=== PATIENT | female | born 1940 | race Caucasian/White ===

== ENCOUNTER 2017-09-28 14:17 | Outpatient (CLI) | payer MEDICARE, OTHER | END 2017-09-28 23:59 | disposition home or self-care (01) | LOC: RT 14:17 | PROVIDERS: ATTEND Internal Medicine Cardiovascular Disease | DX: I25.10 Atherosclerotic heart disease of native coronary artery without angina pectoris (principal) | CPT/HCPCS: 93005 ==

== ENCOUNTER 2017-10-03 08:54 | Outpatient (CLI) | payer MEDICARE, OTHER ==
--- NOTE | 2017-10-05 15:36 | DEXA Report ---
DEXA: 10/03/2017 CLINICAL INDICATION: Postmenopausal. TECHNIQUE: Dual energy x-ray absorptiometry (DXA) was performed on a Patterns system. Regions measured are the AP spine, femoral neck, and, if needed, forearm. COMPARISON: None. In accordance with the International Society for Clinical Densitometry (ISCD) guidelines, data from previous exams may be reanalyzed using current recommendations and techniques. This is done to allow a more accurate basis for comparison with the current study. FINDINGS The data for the lumbar spine is as follows: REGION BMD (g/cm/cm) T-SCORE Z-SCORE L1 0.903 -1.9 -0.3 L2 0.872 -2.7 -1.2 L3 0.794 -3.4 -1.8 L4 0.757 -3.7 -2.1 L1-L4 0.819 -3.0 -1.4 NOTE: All evaluable vertebrae are used for classification. The data for the hip is as follows: REGION BMD (g/cm/cm) T-SCORE Z-SCORE Neck 0.764 -2.0 -0.1 TOTAL 0.917 -0.7 1.0 NOTE: The femoral neck or total proximal femur, whichever is lowest, is used for classification. IMPRESSION THE WHO CLASSIFICATION BASED ON THE INTERNATIONAL REFERENCE STANDARD IS OSTEOPOROSIS. THE FRACTURE RISK IS HIGH. RECOMMENDATION: Patients with diagnosis of osteoporosis or osteopenia should have regular bone mineral density assessment. For those eligible for Medicare, routine testing is allowed once every 2 years. Testing frequency can be increased for patients who have rapidly progressing disease or for those who are receiving medical therapy to restore bone mass. COMMENT: World Health Organization (WHO) definitions for osteoporosis and osteopenia: NORMAL BMD: T-score at 1.0 or higher, fracture risk is low. OSTEOPENIA BMD: T-score between 1.0 and -2.5, fracture risk is increased. OSTEOPOROSIS BMD: T-score at 2.5 or lower, fracture risk high. National Osteoporosis Foundation recommends: 1. Obtain adequate dietary calcium (at least 1200 mg per day) and vitamin D (400 -800 international units per day). 2. Participate, as appropriate, in regular weightbearing and muscle- strengthening exercise. 3. Avoid tobacco use and reduce alcohol and caffeine intake. 4. For more detailed information see the website at www.NOF.org. TD: 10/03/2017 17:13 LINA
== END 2017-10-03 08:55 | disposition home or self-care (01) ==
LOC: DI 08:54
PROVIDERS: ATTEND Internal Medicine
DX: Z13.820 Encounter for screening for osteoporosis (principal); M81.0 Age-related osteoporosis without current pathological fracture; N95.8 Other specified menopausal and perimenopausal disorders
CPT/HCPCS: 77080

== ENCOUNTER 2018-02-18 19:46 | Emergency (ER) | payer MEDICARE, OTHER ==
--- NOTE | 2018-02-18 19:52 | ED Physician Documentation ---
History of Present Illness - Stated complaint Stated Complaint: CHEST PX - History obtained from History obtained from: Patient - History of Present Illness Timing: Yesterday - Additonal information Additional information: 74-year-old female with a history of coronary artery disease presents to the emergency department for evaluation of chest pain. Yesterday evening the patient awoke with chest pressure which she describes as a squeezing that radiated into her left arm. The patient's symptoms lasted 30 minutes and resolved after taking a baby aspirin. Currently, the patient is denying any active chest pain but reports feeling generally fatigued and tired today. The patient denies dyspnea on exertion, URI symptoms, shortness of breath or cough. Symptoms at the time are described as moderate. Currently no symptoms other than feeling tired. No other associated symptoms. No triggering factors Review of Systems Constitutional: reports: Fatigue. denies: Fever Eyes: denies: Loss of vision, Discharge Ears: denies: Drainage/discharge Nose: denies: Rhinorrhea / runny nose, Congestion Throat: denies: Sore throat Cardiac: reports: Chest pain / pressure. denies: Pedal edema Respiratory: denies: Dyspnea, Cough GI: denies: Abdominal Pain : denies: Dysuria Skin: denies: Rash Musculoskeletal: denies: Neck pain Neurologic: denies: Headache Immunocompromised: denies: Transplant PD PAST MEDICAL HISTORY - Past Medical History Cardiovascular: Coronary artery disease - Past Surgical History Past Surgical History: Yes General: Appendectomy Cardiovascular: CABG - Present Medications Home Medications: Ambulatory Orders Medication Instructions Recorded Confirmed No Known Home Medications [No 09/27/15 09/27/15 Known Home Medications] - Allergies Allergies/Adverse Reactions: Allergies Allergy/AdvReac Type Severity Reaction Status Date / Time No Known Drug Allergies Allergy Verified 09/27/15 12:57 - Social History Does the pt smoke?: No Smoking Status: Never smoker Does the pt have substance abuse?: No PD ED PE NORMAL - General General: Alert and oriented X 3, No acute distress - HEENT HEENT: Atraumatic, PERRL, EOMI, Ears normal, Moist mucous membranes - Cardiac Cardiac: RRR, Strong equal pulses - Respiratory Respiratory: No respiratory distress, Clear bilaterally - Abdomen Abdomen: Normal bowel sounds, Non tender, Non distended - Derm Derm: Normal color, No rash - Extremities Extremities: No deformity, No edema - Neuro Neuro: Alert and oriented X 3, Normal speech - Psych Psych: Normal mood Results - Vitals Vitals: Vital Signs - 24 hr 02/18/18 02/18/18 02/18/18 19:51 20:02 20:59 Temperature 36.9 C Heart Rate 66 59 L Respiratory 21 19 Rate Blood Pressure 141/63 H 126/50 L Blood Pressure 136/62 H [Left] Blood Pressure 150/86 H [Right] O2 Saturation 94 93 Oxygen O2 Source Room air - EKG (time done) 1952 Rhythm: NSR Intervals: Normal [place] QRS: Normal Ischemia: Non specific changes Other comments: Other comments (Normal sinus rhythm with nonspecific ST segment changes and T waves, no acute ischemic changes when compared to a recent EKG) Compare to prior EKG: Unchanged from prior EKG - Labs Labs: Laboratory Tests 02/18/18 02/18/18 02/18/18 20:00 20:00 20:00 WBC 7.4 RBC 4.18 L Hgb 12.9 Hct 37.9 MCV 90.9 MCH 30.8 MCHC 33.9 RDW 13.6 Plt Count 240 MPV 8.2 Neut # (Auto) 4.5 Lymph # (Auto) 2.0 [place] # (Auto) 0.6 Eos # (Auto) 0.2 Baso # (Auto) 0.1 Absolute Nucleated RBC 0.00 Nucleated RBC % 0.0 PT 11.4 INR 1.0 APTT 27.7 Sodium 136 Potassium 4.0 Chloride 101 Carbon Dioxide 26 Anion Gap 9.0 BUN 18 Creatinine 0.9 Estimated GFR (MDRD) 61 L Glucose 112 H Calcium 9.0 Total Bilirubin 0.6 AST 17 ALT 13 Alkaline Phosphatase 59 Troponin I B-Natriuretic Peptide Total Protein 7.1 Albumin 4.1 Globulin 3.0 Albumin/Globulin Ratio 1.4 Lipase 42 02/18/18 02/18/18 20:00 20:00 WBC RBC Hgb Hct MCV MCH MCHC RDW Plt Count MPV Neut # (Auto) Lymph # (Auto) [place] # (Auto) Eos # (Auto) Baso # (Auto) Absolute Nucleated RBC Nucleated RBC % PT INR APTT Sodium Potassium Chloride Carbon Dioxide Anion Gap BUN Creatinine Estimated GFR (MDRD) Glucose Calcium Total Bilirubin AST ALT Alkaline Phosphatase Troponin I 0.04 B-Natriuretic Peptide 100 Total Protein Albumin Globulin Albumin/Globulin Ratio Lipase - Rads (name of study) CXR Radiology: See rad report (No acute disease) PD MEDICAL DECISION MAKING - ED course Complexity details: other (The patient has not had any further episodes of chest pain while in the emergency department today. The patient's workup currently does not show any acute abnormalities and I discussed the case with the patient's cardiology group with the on-call senior cobol developer Dr. alyssa Constantino. She was able to review the office records, I discussed with her today's presentation and EKG, chest x-ray and lab findings. She recommends a repeat troponin and follow-up in clinic this week and they will arrange an outpatient stress test. I discussed the findings with the patient. The patient has refused to stay in the emergency department for repeat troponin, since she does not want to drive at night. I explained to her the risks of an unknown complete workup in the emergency department. The patient is comfortable with this plan, she understands the risk of physical, mental disability and . I advised returning to the emergency department immediately for any worsening or concerns. Otherwise the patient will follow up with primary care) - Sepsis Event Vital Signs: Vital Signs - 24 hr 02/18/18 02/18/18 02/18/18 19:51 20:02 20:59 Temperature 36.9 C Heart Rate 66 59 L Respiratory 21 19 Rate Blood Pressure 141/63 H 126/50 L Blood Pressure 136/62 H [Left] Blood Pressure 150/86 H [Right] O2 Saturation 94 93 Oxygen O2 Source Room air Departure - Departure Disposition: 01 Home, Self Care Clinical Impression: Chest pain Qualifiers: Chest pain type: unspecified Qualified Code(s): R07.9 - Chest pain, unspecified Condition: Good Instructions: ED Chest Pain Atypical Unkn Cause Follow-Up: Mayte Duvall MD [Provider Admit Priv/Credential] - Tomorrow (Please follow- up with your senior cobol developer tomorrow so that they can arrange for an outpatient stress test) Comments: You refused to stay in the emergency department for a repeat troponin. Understand the risks of an incomplete Workup in the emergency department. You are comfortable with these risks. Please return to the emergency department at any point for reevaluation
[2018-02-18] MEDS ORDERED: ASPIRIN CHEW 81 MG TABLET PO STA (20:10)
[2018-02-18 20:15] LABS: BASOPHILS # (AUTO) 0.1 10^3/uL (0.0-0.1); BASOPHILS % (AUTO) 1.2 %; EOSINOPHILS # (AUTO) 0.2 10^3/uL (0.0-0.7); EOSINOPHILS % (AUTO) 2.9 %; HGB - HEMOGLOBIN 12.9 g/dL (12.0-16.0); LYMPHOCYTES % (AUTO) 27.2 %; MEAN CORPUSCULAR HEMOGLOBIN 30.8 pg (27.0-31.0); MEAN CORPUSCULAR HGB CONC 33.9 g/dL (32.0-36.0); MEAN CORPUSCULAR VOLUME 90.9 fL (81.0-99.0); MEAN PLATELET VOLUME 8.2 fL (7.9-10.8); MONOCYTES # (AUTO) 0.6 10^3/uL (0.0-1.0); MONOCYTES % (AUTO) 7.6 %; NEUTROPHILS # (AUTO) 4.5 10^3/uL (1.5-6.6); NEUTROPHILS % (AUTO) 61.1 %; PLT - PLATELET COUNT 240 10^3/uL (130-450); RED BLOOD COUNT 4.18 10^6/uL (4.20-5.40); RED CELL DISTRIBUTION WIDTH 13.6 % (12.0-15.0); WHITE BLOOD COUNT 7.4 x10^3/uL (4.8-10.8)
[2018-02-18 20:19] LABS: PT - PROTHROMBIN TIME 11.4 secs (9.9-12.6)
[2018-02-18 20:20] LABS: ALBUMIN 4.1 g/dL (3.2-5.5); ALBUMIN/GLOBULIN RATIO 1.4 (1.0-2.2); BILIRUBIN,TOTAL 0.6 mg/dL (0.2-1.0); CREATININE 0.9 mg/dL (0.4-1.0); TOTAL PROTEIN 7.1 g/dL (6.7-8.2)
--- NOTE | 2018-02-18 20:32 | XRAY Report ---
Procedure Date: 02/18/2018 Accession Number: [id number] / [id number] Procedure: XR - Chest 2 View X-Ray CPT Code: 42222 FULL RESULT: EXAM: CHEST RADIOGRAPHY EXAM DATE: 02/18/2018 08:15 PM. CLINICAL HISTORY: Chest pain. COMPARISON: None. TECHNIQUE: 2 views. FINDINGS: Lungs/Pleura: No focal opacities evident. No pleural effusion. No pneumothorax. Normal volumes. Mediastinum: No cardiac enlargement. Previous sternotomy. EKG leads overlie the chest. Other: None. IMPRESSION: 1. No acute pulmonary process. 2. Previous sternotomy. No cardiac enlargement. RADIA
[2018-02-18 21:36] VITALS: BP 138/50
== END 2018-02-18 21:51 | disposition home or self-care (01) ==
LOC: ED 19:46
DX: R07.9 Chest pain, unspecified (principal); I25.10 Atherosclerotic heart disease of native coronary artery without angina pectoris; Z95.1 Presence of aortocoronary bypass graft
CPT/HCPCS: 36415; 71046; 80053; 83690; 83880; 84484; 85025; 85610; 85730; 93005; 99283; A9270

== ENCOUNTER 2019-03-21 06:39 | Day surgery (SDC) | payer MEDICARE, OTHER ==
[~2019-03-21 06:39] MED LIST: CYCLOPENTOLATE 1% OPHTH DROPS 2 ML ONE; KETOROLAC 0.45% OPHTH DROPS ONE; PHENYLEPHRINE 2.5% OPHTH 2 ML DROPS ONE; PROPARACAINE 0.5% OPHTH DROPS 15 ML ONE
[2019-03-21] MEDS ORDERED: MIDAZOLAM 2 MG/2 ML VIAL IVP ONE (06:40)
[2019-03-21] MEDS ORDERED: CYCLOPENTOLATE 1% OPHTH DROPS 2 ML RIGHTEYE ONE (06:55)
[2019-03-21] MEDS ORDERED: KETOROLAC 0.45% OPHTH DROPS RIGHTEYE ONE (06:55)
[2019-03-21] MEDS ORDERED: PHENYLEPHRINE 2.5% OPHTH 2 ML DROPS RIGHTEYE ONE (06:55)
[2019-03-21] MEDS ORDERED: PROPARACAINE 0.5% OPHTH DROPS 15 ML RIGHTEYE ONE ×2 (06:55→08:06)
[2019-03-21] MEDS ORDERED: LACTATED RINGERS 500 ML IV ONE ×3 (07:06)
--- NOTE | 2019-03-21 07:31 | ANESTHESIA ---
Pre-Anesthesia VS, & Labs - Diagnosis right eye senile combined cataract - Procedure right eye cataract extraction with IOL implant Vital Signs: Temp Pulse Resp BP Pulse Ox 37.0 C 67 15 123/73 100 03/21/19 06:51 03/21/19 06:51 03/21/19 06:51 03/21/19 06:51 03/21/19 06:51 Height 5 ft 2 in Weight (kg) 72.4 kg Body Mass Index 26.1 - NPO >8 hours - Is Patient ?: No Home Medications and Allergies Home Medications: Ambulatory Orders Aspirin 162 mg PO PRN PRN 03/20/19 Aspirin 162 mg PO PRN PRN 03/20/19 Allergies/Adverse Reactions: Allergies Allergy/AdvReac Type Severity Reaction Status Date / Time No Known Drug Allergies Allergy Verified 03/20/19 13:54 Anes History & Medical History - Anesthetic History Anesthesia Complications: reports: No previous complications - Medical History Cardiovascular: reports: Coronary artery disease, Murmur Pulmonary: reports: None Gastrointestinal: reports: None Urinary: reports: None Neuro: reports: None Musculoskeletal: reports: None Endocrine/Autoimmune: reports: None Blood Disorders: reports: None Skin: reports: None Smoking Status: Never smoker Psychosocial: reports: No issues indicated - Surgical History General: Appendectomy Cardiothoracic: CABG Exam General: Alert, Oriented x3, Cooperative, No acute distress Dental: WNL, Other (prominent inscisors) Mouth Openin Fingerbreadth Neck Mobility: Normal Mallampati classification: II Thyromental Distance: 4-6 cm Respiratory: Lungs clear, Normal breath sounds, No respiratory distress, No accessory muscle use Cardiovascular: Other (systolic murmur III/IV) Mental/Cognitive Status: Alert/Oriented X3, Normal for patient Plan Anesthesia Type: MAC Consent for Procedure(s) Verified and Reviewed: Yes Code Status: Attempt Resuscitation ASA classification: 3-Severe systemic disease Is this case an emergency?: No
[2019-03-21] MEDS ORDERED: TIMOLOL 0.5% OPHTH DROPS OPTH ONE (08:05)
[2019-03-21] MEDS ORDERED: EPINEPHrine 1 MG/ML AMP IVP ONE (08:05)
[2019-03-21] MEDS ORDERED: BRIMONIDINE 0.2% OPHTH DROPS 5 ML OPTH ONE (08:05)
[2019-03-21] MEDS ORDERED: CHONDR SULF/HYALURONATE SYRINGE IO ONE (08:05)
[2019-03-21] MEDS ORDERED: BSS/LIDOCAINE/EPINEPHRINE 1 ML SYRINGE IO ONE (08:06)
[2019-03-21] MEDS ORDERED: VANCOMYCIN OPHTHALMI 8MG/0.8ML 8 MG/0.8 ML SYRINGE IO ONE ×3 (08:07→09:20)
[2019-03-21 08:34] VITALS: BP 101/59
--- NOTE | 2019-03-21 08:42 | OPERATIVE REPORT ---
DATE OF SERVICE: 03/21/2019 Physician: Luc Clark MD PREOPERATIVE DIAGNOSIS: Visually significant cataract, right eye. This was her first cataract surgery. POSTOPERATIVE DIAGNOSIS: Visually significant cataract, right eye. This was her first cataract surgery. PROCEDURE: Phacoemulsification with posterior chamber intraocular lens implant, right eye. SURGEON: Luc Clark MD ANESTHESIA: Monitored anesthesia care. COMPLICATIONS: None. OPERATIVE INDICATIONS: This is a 79-year-old woman with progressive vision loss in the right eye due to 2 to 3+ nuclear sclerotic and vacuolar cataract. Best corrected visual acuity was 20/30 with glare to hand motion vision in the right eye. Indications for surgery are difficulty reading; difficulty seeing words, closed caption or game scores on TV; difficulty seeing street signs, difficulty driving in low light or at night, difficulty driving at night because headlights from other vehicles, and difficulty with glare or bright lights in any situation. She was consented at length concerning the risks and benefits of cataract surgery, after which she expressed a desire to proceed with surgery. OPERATIVE PROCEDURE: Patient was taken into OR #3 and placed under monitored anesthesia care. A surgical timeout was conducted confirming correct patient, correct procedure, and correct surgical site. She was given topical anesthesia, then prepped and draped in the usual sterile fashion. The eye was entered at the 12 and 9-o'clock positions. Intracameral Shugarcaine was injected into the anterior chamber, followed by Viscoat. A continuous-tear curvilinear capsulorrhexis was performed. The nucleus was hydrodissected and phacoemulsified. The cortex was evacuated using automated infusion and aspiration. Provisc was injected in the capsular bag, and a 22.5-diopter intraocular lens was inserted in the bag. Approximately 0.8 mL of a mixture of triamcinolone, moxifloxacin and vancomycin was injected subconjunctivally in the superior quadrant for infection and inflammation prophylaxis. I and A was used to evacuate the viscoelastic materials. The eye was inflated to physiologic pressure using a balanced salt solution and found to be watertight. Patient was taken from the operating room in good condition and given postoperative instructions. TD: 03/21/2019 08:25 [facility] HOSPITALGilberto
[2019-03-21] MEDS ORDERED: TRIAMCIN/MOXIFLOX OPHTHALMIC 0.6 ML VIAL IO ONE (09:19)
[2019-03-21] MEDS ORDERED: EPINEPHrine 1 MG/ML AMP ONE (09:19)
[2019-03-21] MEDS ORDERED: BSS/LIDOCAINE/EPINEPHRINE 1 ML SYRINGE ONE (09:20)
[2019-03-21] MEDS ORDERED: BRIMONIDINE 0.2% OPHTH DROPS 5 ML ONE (09:20)
[2019-03-21] MEDS ORDERED: TIMOLOL 0.5% OPHTH DROPS ONE (09:20)
== END 2019-03-21 06:40 | disposition home or self-care (01) ==
LOC: SDS 06:39
PROVIDERS: ATTEND Ophthalmology
PROC: 08RJ3JZ Replacement of Right Lens with Synthetic Substitute, Percutaneous Approach (ICD-10-PCS; principal; 2019-03-21 08:00)
DX: H25.811 Combined forms of age-related cataract, right eye (principal); H35.30 Unspecified macular degeneration; I25.10 Atherosclerotic heart disease of native coronary artery without angina pectoris; R01.1 Cardiac murmur, unspecified; Z95.1 Presence of aortocoronary bypass graft
CPT/HCPCS: 66984; A9270; J3490; V2632

== ENCOUNTER 2019-04-11 11:27 | Outpatient (CLI) | payer MEDICARE, OTHER | END 2019-04-11 11:28 | disposition home or self-care (01) | LOC: DI 11:27 | PROVIDERS: ATTEND Internal Medicine | DX: R01.1 Cardiac murmur, unspecified (principal); I34.0 Nonrheumatic mitral (valve) insufficiency | CPT/HCPCS: 93306 ==

== ENCOUNTER 2019-07-18 08:56 | Day surgery (SDC) | payer MEDICARE, OTHER ==
[~2019-07-18 08:56] MED LIST changes: +BRIMONIDINE 0.2% OPHTH DROPS 5 ML ONE; +BSS/LIDOCAINE/EPINEPHRINE 1 ML SYRINGE ONE; -CYCLOPENTOLATE 1% OPHTH DROPS 2 ML ONE; +EPINEPHrine 1 MG/ML AMP ONE; -KETOROLAC 0.45% OPHTH DROPS ONE; -PHENYLEPHRINE 2.5% OPHTH 2 ML DROPS ONE; -PROPARACAINE 0.5% OPHTH DROPS 15 ML ONE; +TIMOLOL 0.5% OPHTH DROPS ONE; +TRIAMCIN/MOXIFLOX OPHTHALMIC 0.6 ML VIAL IO ONE; +VANCOMYCIN OPHTHALMI 8MG/0.8ML 8 MG/0.8 ML SYRINGE IO ONE
[2019-07-18] MEDS ORDERED: PROPARACAINE 0.5% OPHTH DROPS 15 ML ONE (09:06)
[2019-07-18] MEDS ORDERED: KETOROLAC 0.45% OPHTH DROPS ONE (09:06)
[2019-07-18] MEDS ORDERED: CYCLOPENTOLATE 1% OPHTH DROPS 2 ML ONE (09:06)
[2019-07-18] MEDS ORDERED: PHENYLEPHRINE 2.5% OPHTH 2 ML DROPS ONE (09:06)
[2019-07-18] MEDS ORDERED: LACTATED RINGERS 500 ML IV ONE (09:14)
[2019-07-18] MEDS ORDERED: PHENYLEPHRINE 2.5% OPHTH 2 ML DROPS LEFTEYE ONE (09:18)
[2019-07-18] MEDS ORDERED: KETOROLAC 0.45% OPHTH DROPS LEFTEYE ONE (09:18)
[2019-07-18] MEDS ORDERED: CYCLOPENTOLATE 1% OPHTH DROPS 2 ML LEFTEYE ONE (09:18)
[2019-07-18] MEDS ORDERED: PROPARACAINE 0.5% OPHTH DROPS 15 ML LEFTEYE ONE ×2 (09:18→10:01)
--- NOTE | 2019-07-18 09:36 | ANESTHESIA ---
Pre-Anesthesia VS, & Labs - Diagnosis left senile combined cataract - Procedure left cataract extraction with intraocular lens implant Vital Signs: Temp Pulse Resp BP Pulse Ox 36.5 C 71 18 141/66 H 98 07/18/19 09:11 07/18/19 09:11 07/18/19 09:11 07/18/19 09:11 07/18/19 09:11 Height 5 ft 2 in Weight (kg) 74.3 kg Body Mass Index 26.1 - NPO >8 hours - Is Patient ?: No Home Medications and Allergies Aspirin 81 mg PO PRN PRN 03/20/19 Allergies/Adverse Reactions: Allergies Allergy/AdvReac Type Severity Reaction Status Date / Time No Known Drug Allergies Allergy Verified 03/20/19 13:54 Anes History & Medical History - Anesthetic History Anesthesia Complications: reports: No previous complications - Medical History Cardiovascular: reports: Coronary artery disease, Murmur Pulmonary: reports: None Gastrointestinal: reports: None Urinary: reports: None Neuro: reports: None Musculoskeletal: reports: None Endocrine/Autoimmune: reports: None Blood Disorders: reports: None Skin: reports: None Smoking Status: Never smoker - Surgical History General: Appendectomy Cardiothoracic: CABG Exam General: Alert Dental: WNL, Other (upper permenant implants) Mouth Opening: Greater than 4 Fingerbreadths Mallampati classification: II Thyromental Distance: greater than 6 cm Respiratory: Lungs clear Cardiovascular: Regular rate, Normal S1, Normal S2 Mental/Cognitive Status: Alert/Oriented X3 Plan Anesthesia Type: MAC Consent for Procedure(s) Verified and Reviewed: Yes Code Status: Attempt Resuscitation ASA classification: 2-Mild systemic disease Is this case an emergency?: No
[2019-07-18] MEDS ORDERED: MIDAZOLAM 2 MG/2 ML VIAL IVP ONE (09:51)
[2019-07-18] MEDS ORDERED: TIMOLOL 0.5% OPHTH DROPS OPTH ONE (10:00)
[2019-07-18] MEDS ORDERED: CHONDR SULF/HYALURONATE SYRINGE IO ONE (10:00)
[2019-07-18] MEDS ORDERED: EPINEPHrine 1 MG/ML AMP IVP ONE (10:00)
[2019-07-18] MEDS ORDERED: BSS/LIDOCAINE/EPINEPHRINE 1 ML SYRINGE IO ONE (10:00)
[2019-07-18] MEDS ORDERED: BRIMONIDINE 0.2% OPHTH DROPS 5 ML OPTH ONE (10:00)
[2019-07-18] MEDS ORDERED: CARBACHOL 0.01% 1.5 ML VIAL IO ONE ×2 (10:12→10:14)
[2019-07-18] MEDS ORDERED: TRIAMCINOLONE PF 40 MG/ML VIAL ONE (10:18)
[2019-07-18 10:45] VITALS: BP 123/58
--- NOTE | 2019-07-18 11:06 | OPERATIVE REPORT ---
DATE OF SERVICE: 07/18/2019 Physician: Luc Clark MD PREOPERATIVE DIAGNOSIS: Visually significant cataract, left eye. Cataract surgery was performed on the right eye on 03/21/2019. POSTOPERATIVE DIAGNOSIS: Visually significant cataract, left eye. Cataract surgery was performed on the right eye on 03/21/2019. PROCEDURE: Phacoemulsification with posterior chamber intraocular lens implant, left eye. SURGEON: Luc Clark MD ANESTHESIA: Monitored anesthesia care. COMPLICATIONS: Posterior capsular rupture with dry anterior vitrectomy to remove vitreous coming to the wound and displacing the IOL. OPERATIVE INDICATIONS: This is a 79-year-old woman with progressive vision loss in the left eye due to 3 to 4+ nuclear sclerotic cataract, 1+ cortical and vacuolar cataract. Best corrected visual acuity was 20/25, with glare to 20/200 in the left eye. Indications for surgery are overall decrease in vision, difficulty seeing words on a computer screen, difficulty reading, difficulty seeing words, closed caption or game scores on TV, difficulty seeing street signs, difficulty driving in low light or at night, difficulty driving at night because of headlights from other vehicles, and difficulty with glare or bright lights in any situation. She was consented at length concerning risks and benefits of cataract surgery, after which she expressed a desire to proceed with surgery. OPERATIVE PROCEDURE: Patient was taken to OR #3 and placed under monitored anesthesia care. A surgical timeout was conducted confirming correct patient, correct procedure, and correct surgical site. She was given topical anesthesia and then prepped and draped in the usual sterile fashion. The eye was entered at the 6 and 3 o'clock positions. Intracameral Shugarcaine was injected into the anterior chamber, followed by Viscoat. A continuous-tear curvilinear capsulorrhexis was performed. The nucleus was hydrodissected and phacoemulsified. However, towards the end of nuclear cleanup there was an obvious oval hole in the posterior capsule superonasally. No vitreous presented initially but I elected to place the IOL in the sulcus, so we went to the backup lens, a 22 diopter, [id number] lens. This was injected into the sulcus and the optic was placed into capsulorrhexis capture. However, there was still some cortex and nucleus temporally and while attempting to remove that, the lens started to decenter inferiorly. Sure enough vitreous was found to be at the wound. We were in preparation for a wet vitrectomy and while that was occurring I performed dry vitrectomy. That cleared the vitreous coming around the IOL. It had pulled up a small piece of nucleus that was behind the IOL, but I did not attempt to retrieve it. Some of the residual cortex though was removed. Miostat was injected into the anterior chamber to bring down the pupil. The wounds were hydrated and found to be watertight. Then, approximately 0.25 mL of a mixture of triamcinolone and moxifloxacin was injected transsclerally into the vitreous in the temporal quadrant. An additional 0.55 mL of a mixture of triamcinolone, moxifloxacin and vancomycin was injected subconjunctivally in the superior quadrant for infection and inflammation prophylaxis. The wounds were again checked for wound integrity with Weck-Anjali and found to be watertight. Patient was taken from the operating room in good condition and her was informed of the complication and the possibility of further procedures necessary to clear her visual axis. TD: 07/18/2019 10:38 LINA
== END 2019-07-18 08:57 | disposition home or self-care (01) ==
LOC: SDS 08:56
PROVIDERS: ATTEND Ophthalmology
PROC: 08953ZZ Drainage of Left Vitreous, Percutaneous Approach (ICD-10-PCS; 2019-07-18)
PROC: 08RK3JZ Replacement of Left Lens with Synthetic Substitute, Percutaneous Approach (ICD-10-PCS; principal; 2019-07-18 10:00)
DX: H25.812 Combined forms of age-related cataract, left eye (principal); H59.88 Other intraoperative complications of eye and adnexa, not elsewhere classified; Z95.1 Presence of aortocoronary bypass graft
CPT/HCPCS: 66984; 67005; A9270; J3490; V2632

== ENCOUNTER 2020-05-17 09:28 | Outpatient (CLI) | payer MEDICARE, OTHER | END 2020-05-17 09:29 | disposition critical access hospital (66) | LOC: EMS 09:28 | PROVIDERS: ATTEND Surgery | DX: K92.0 Hematemesis (principal); R19.5 Other fecal abnormalities | CPT/HCPCS: A0425; A0429 ==

== ENCOUNTER 2020-05-17 10:01 | Inpatient (IN) | payer MEDICARE, OTHER ==
[2020-05-17] MEDS ORDERED: SODIUM CHLORIDE 0.9% 1,000 ML IV STA (10:07)
[2020-05-17] MEDS ORDERED: ONDANSETRON 4 MG/2 ML VIAL IVP STA (10:08)
[2020-05-17 10:37] LABS: BASOPHILS # (AUTO) 0.1 10^3/uL (0.0-0.1); BASOPHILS % (AUTO) 0.8 %; EOSINOPHILS # (AUTO) 0.1 10^3/uL (0.0-0.7); EOSINOPHILS % (AUTO) 1.4 %; HGB - HEMOGLOBIN 10.3 g/dL (12.0-16.0); LYMPHOCYTES # (AUTO) 1.1 10^3/uL (1.5-3.5); LYMPHOCYTES % (AUTO) 17.9 %; MEAN CORPUSCULAR HEMOGLOBIN 29.9 pg (27.0-31.0); MEAN CORPUSCULAR HGB CONC 31.5 g/dL (32.0-36.0); MEAN CORPUSCULAR VOLUME 94.8 fL (81.0-99.0); MONOCYTES # (AUTO) 0.4 10^3/uL (0.0-1.0); MONOCYTES % (AUTO) 5.9 %; NEUTROPHILS # (AUTO) 4.6 10^3/uL (1.5-6.6); NEUTROPHILS % (AUTO) 73.2 %; PLT - PLATELET COUNT 207 10^3/uL (130-450); RED BLOOD COUNT 3.45 10^6/uL (4.20-5.40); RED CELL DISTRIBUTION WIDTH 12.7 % (12.0-15.0); WHITE BLOOD COUNT 6.3 x10^3/uL (4.8-10.8)
[2020-05-17 10:43] LABS: INR 1.2 (0.8-1.2)
[2020-05-17 10:50] LABS: ALBUMIN 3.5 g/dL (3.2-5.5); ALBUMIN/GLOBULIN RATIO 1.3 (1.0-2.2); BILIRUBIN,TOTAL 0.9 mg/dL (0.2-1.0); CREATININE 0.9 mg/dL (0.4-1.0); TOTAL PROTEIN 6.1 g/dL (6.7-8.2)
[2020-05-17] MEDS ORDERED: PANTOPRAZOLE 40 MG VIAL IV STA (11:37)
--- NOTE | 2020-05-17 12:18 | XRAY Report ---
PROCEDURE: Chest 1 View X-Ray INDICATIONS: chest pain TECHNIQUE: One view of the chest was acquired. COMPARISON: February 18, 2018 chest radiographs FINDINGS: Surgical changes and devices: Postoperative changes of sternotomy. Lungs and pleura: No pleural effusions or pneumothorax. Lungs are clear. Mediastinum: Mediastinal contours appear normal. Heart size is normal. Bones and chest wall: No suspicious bony lesions. Overlying soft tissues appear unremarkable. IMPRESSION: No acute cardiopulmonary abnormality. Reviewed by: Ramon Anderson on 05/17/2020 11:17 AM ELIN Approved by: Ramon Anderson on 05/17/2020 11:17 AM ELIN Station ID: [id number]
--- NOTE | 2020-05-17 13:21 | ED Physician Documentation ---
History of Present Illness - Stated complaint Stated Complaint: VOMITING BLOOD - Chief complaint Chief Complaint: Abd Pain - History obtained from History obtained from: Patient - Additonal information Additional information: Patient comes emergency department complaining of dark stools dizziness and vomiting blood this morning. Patient states she felt a little nauseated yesterday but did not have any vomiting at that time. She states she woke up this morning still feeling a little bad and got up to go to the bathroom. After having a large black bowel movement, she states she felt as though she was going to faint so she went to lay down on her bed. Shortly thereafter, she had a couple of episodes of vomiting, and her states that there were streaks of dark maroon blood in the vomitus. Patient states this is never happened before. She denies any history of ulcers. No recent upper abdominal pain. She is not on any anticoagulation and denies use of NSAIDs recently. No smoking. Patient states she is feeling "fine" now. Review of Systems Ten Systems: 10 systems reviewed and negative Constitutional: reports: Reviewed and negative Eyes: reports: Reviewed and negative Ears: reports: Reviewed and negative Nose: reports: Reviewed and negative Throat: reports: Reviewed and negative Cardiac: reports: Reviewed and negative Respiratory: reports: Reviewed and negative GI: reports: Nausea, Vomiting, Hematemesis, Bloody / black stool : reports: Reviewed and negative Skin: reports: Reviewed and negative Musculoskeletal: reports: Reviewed and negative Neurologic: reports: Reviewed and negative Psychiatric: reports: Reviewed and negative Endocrine: reports: Reviewed and negative Immunocompromised: reports: Reviewed and negative PD PAST MEDICAL HISTORY - Past Medical History Cardiovascular: Coronary artery disease, Murmur Respiratory: None Neuro: None Endocrine/Autoimmune: None GI: None : None HEENT: Chronic vision loss Psych: Anxiety Musculoskeletal: None Derm: None - Past Surgical History Past Surgical History: Yes General: Appendectomy Cardiovascular: CABG - Present Medications Home Medications: Ambulatory Orders Medication Instructions Recorded Confirmed Aspirin 81 mg PO PRN PRN 03/20/19 07/17/19 - Allergies Allergies/Adverse Reactions: Allergies Allergy/AdvReac Type Severity Reaction Status Date / Time No Known Drug Allergies Allergy Verified 03/20/19 13:54 - Social History Does the pt smoke?: No Smoking Status: Never smoker Does the pt drink ETOH?: Yes ETOH Use: Wine Does the pt have substance abuse?: No - Immunizations Immunizations are current?: Yes - POLST Patient has POLST: Yes PD ED PE NORMAL - Vitals Vital signs reviewed: Yes - General General: Alert and oriented X 3, No acute distress - HEENT HEENT: Atraumatic, PERRL, EOMI, Moist mucous membranes - Neck Neck: Supple, no meningeal sign - Cardiac Cardiac: RRR, No murmur - Respiratory Respiratory: No respiratory distress, Clear bilaterally - Abdomen Abdomen: Soft, Non tender, Non distended - Rectal Rectal: Other (Blackish stool. No beatrice blood.) - Back Back: No CVA TTP - Derm Derm: Normal color, Warm and dry, No rash - Extremities Extremities: No deformity, No edema, No calf tenderness / cord - Neuro Neuro: Alert and oriented X 3, Other (Grossly normal) - Psych Psych: Normal mood, Normal affect Results - Vitals Vitals: Vital Signs - 24 hr 05/17/20 05/17/20 05/17/20 10:06 11:19 12:52 Temperature 37.1 C Heart Rate 76 68 64 Respiratory 18 16 18 Rate Blood Pressure 149/56 H 106/62 111/48 L O2 Saturation 100 100 98 Oxygen O2 Source Room air - Labs Labs: Microbiology 05/17/20 11:10 Occult Blood - Final Stool Laboratory Tests 05/17/20 05/17/20 05/17/20 10:24 10:24 10:24 WBC 6.3 RBC 3.45 L Hgb 10.3 L Hct 32.7 L MCV 94.8 MCH 29.9 MCHC 31.5 L RDW 12.7 Plt Count 207 MPV 10.0 Neut # (Auto) 4.6 Lymph # (Auto) 1.1 L [place] # (Auto) 0.4 Eos # (Auto) 0.1 Baso # (Auto) 0.1 Absolute Nucleated RBC 0.00 Nucleated RBC % 0.0 PT 13.0 H INR 1.2 Sodium Potassium Chloride Carbon Dioxide Anion Gap BUN Creatinine Estimated GFR (MDRD) Glucose Calcium Total Bilirubin AST ALT Alkaline Phosphatase Total Protein Albumin Globulin Albumin/Globulin Ratio Lipase Blood Type O POSITIVE Antibody Screen NEGATIVE 05/17/20 10:24 WBC RBC Hgb Hct MCV MCH MCHC RDW Plt Count MPV Neut # (Auto) Lymph # (Auto) [place] # (Auto) Eos # (Auto) Baso # (Auto) Absolute Nucleated RBC Nucleated RBC % PT INR Sodium 139 Potassium 4.7 Chloride 104 Carbon Dioxide 27 Anion Gap 8.0 BUN 42 H Creatinine 0.9 Estimated GFR (MDRD) 60 L Glucose 113 H Calcium 9.0 Total Bilirubin 0.9 AST 11 ALT 12 Alkaline Phosphatase 44 Total Protein 6.1 L Albumin 3.5 Globulin 2.6 Albumin/Globulin Ratio 1.3 Lipase 22 Blood Type Antibody Screen PD MEDICAL DECISION MAKING - ED course Complexity details: reviewed old records, reviewed results, re-evaluated patient, considered differential, d/w patient ED course: Patient was worked up with labs, as well as guaiac testing. Guaiac was positive. Patient's hemoglobin was 10 which was 3 g was on her last draw a couple of years ago. The patient was feeling well, but given her hemoglobin drop, the positive guaiac, and the report of upper GI bleeding, I feel she should stay in the hospital further monitoring. She was given an IV dose of Protonix. I discussed the case with Dr. Gao, who agreed to admit the patient to his service. Departure - Departure Disposition: ED Place in Observation Clinical Impression: Upper GI bleeding Condition: Serious
[2020-05-17] MEDS ORDERED: PROCHLORPERAZINE 10 MG/2 ML VIAL IVP PRN (13:24)
[2020-05-17] MEDS ORDERED: SODIUM CHLORIDE FLUSH 0.9% 10 ML SYRINGE IVP PRN (13:24)
[2020-05-17] MEDS ORDERED: ACETAMINOPHEN 325 MG TABLET PO PRN (13:24)
[2020-05-17] MEDS ORDERED: ONDANSETRON 4 MG/2 ML VIAL IVP PRN (13:24)
--- NOTE | 2020-05-17 13:44 | HISTORY & PHYSICAL EXAMINATION ---
Chief Complaint - Chief Complaint Chief Complaint: GI bleed History of Present Illness - Admitted From Admitted From:: ER - History Obtained From Records Reviewed: [facility] History obtained from: pt Exam Limitations: non - History of Present Illness HPI Comment/Other: This is a memo 80 years old female with a past medical history significant of CAD with bypass in 2006, Heart murmur Who complain to have dark stool and hem atemesis. Patient reported in today 9 AM she take a quite a long time to have bowel movement, she found that she have very dark large stool. she feel dizziness but no loss conscious or fall, and laying at the bed and sweating. Then she had vomiting of blood, size is like a cup. Patient reported after she had vomiting she feel much better. Patient also reported she have some difficulty swallow for 2 weeks and a choke 2 days ago. She reported she has no home medications "I am healthy." She denies history of smoking or alcohol issue. She denies taking any blood thinners or even baby aspirin. She reported she never have EGD or colonoscopy done in her life. Patient denies chest pain, fever, chilly, shortness of breathing. In routine laboratory test show patient had a hemoglobin 10.3, she had 12.9 in 2018, And elevated BUN 42. Chest x-ray is unremarkable. Patient is afebrile, no tachycardia, hemodynamic stable at this point. Surgeon was called, surgeon planned to have EGD and colonoscopy for patient on tomorrow. Discussed care goal with patient, patient like to choose full code. History - Past Medical History Cardiovascular: reports: Coronary artery disease, Murmur Respiratory: reports: None Neuro: reports: None Endocrine/Autoimmune: reports: None GI: reports: None : reports: None HEENT: reports: Chronic vision loss Psych: reports: Anxiety Musculoskeletal: reports: None Derm: reports: None MRSA Hx?: No - Past Surgical History General: reports: Appendectomy Cardiovascular: reports: CABG - Family & Social History Family History: Mother: , Father: Family History Comment/Other: Patient reported her father from some stomach issue she did not know detail. Her mother from breast cancer, her brother have diabetic. Living arrangement: At home Living Situation: With spouse/s.o. Social History Notes: Patient denies history of alcohol, smoking and drug issue. She is living at [place], she had 2 children. - POLST Patient has POLST: Yes Meds/Allgy - Home Medications Home Medications: Ambulatory Orders Medication Instructions Recorded Confirmed Aspirin 81 mg PO PRN PRN 03/20/19 07/17/19 - Allergies Allergies/Adverse Reactions: Allergies Allergy/AdvReac Type Severity Reaction Status Date / Time No Known Drug Allergies Allergy Verified 03/20/19 13:54 Review of Systems - Constitutional Constitutional: reports: Diaphoresis. denies: Fatigue, Fever, Chills, Malaise, Weakness, Poor appetite, Night sweats - Eyes Eyes: denies: Pain, Blurred vision, Spots in vision, Field loss, Vision loss, Dipolpia - Ears, Nose & Throat Ears, Nose & Throat: denies: Ear pain, Hearing loss, Hearing aids, Nasal pain, Nasal discharge, Nosebleeds, Nasal obstruction, Nasal congestion, Sore throat, Mouth lesions, Bleeding gums - Cardiovascular Cariovascular: denies: Irregular heart rate, Palpitations, Chest pain, Edema, Lightheadedness, Syncope, Exertional dyspnea, Decr. exercise tolerance - Respiratory Respiratory: denies: Cough, Sputum production, Wheezing, Snoring, Hemoptysis, Orthopnea, SOB at rest, SOB with exertion - Gastrointestinal Gastrointestinal: reports: Black stools, Bloody stools, Nausea, Vomiting, Coffee grounds emesis. denies: Abdominal pain, Abdominal distention, Constipation, Diarrhea, Change in bowel habits, Rectal bleeding, Bile emesis, Maikel blood emesis, Reflux/heartburn, Bloating, Poor appetite - Genitourinary Genitourinary: denies: Dysuria, Urgency, Hematuria, Incontinence, Flank pain, Nocturia, Urethral discharge - Musculoskeletal Musculoskeletal: denies: Muscle pain, Back pain, Muscle aches, Stiffness, Limited range of motion, Muscle weakness, Gout, Joint pain - Integumentary Integumentary: denies: Rash, Lesions, Dryness, Acne, Pigment changes, Nail gamble es - Neurological Neurological: denies: General weakness, Focal weakness, Headache, Dizziness, Numbness, Memory problems, Pre-existing deficit, Abnormal gait, Seizures, Incoordination, Slurred speech - Psychiatric Psychiatric: denies: Depression, Anxiety, Suicidal, Delusions, Hallucinations, Homicidal - Endocrine Endocrine: denies: Polyuria, Polydypsia, Polyphagia - Hematologic/Lymphatic Hematologic/Lymphatic: denies: Anemia, Bruising, Petechiae, Blood clots, Lymphadenopathy Exam - Vital Signs Vital Signs: Vital Signs x48h Temp Pulse Resp BP Pulse Ox 05/17/20 13:42 70 16 124/57 L 100 05/17/20 12:52 64 18 111/48 L 98 05/17/20 11:19 68 16 106/62 100 05/17/20 10:06 37.1 C 76 18 149/56 H 100 - Physical Exam General Appearance: positive: No acute distress, Alert. negative: Lethargic Eyes Bilateral: positive: Normal inspection, PERRL, No lid inflammation ENT: positive: ENT inspection nml, No signs of dehydration. negative: Purulent nasal drainage Neck: positive: Nml inspection, Thyroid nml, Trachea midline. negative: Thyromegaly, Stiff neck, Tracheal deviation Respiratory: positive: Chest non-tender, No respiratory distress, Breath sounds nml. negative: Wheezes, Rales, Rhonchi Cardiovascular: positive: Regular rate & rhythm, Systolic murmur, Diastolic murmur. negative: Irregularly irregular, Tachycardia, Bradycardia Peripheral Pulses: positive: 2+ Abdomen: positive: Non-tender, No organomegaly, Nml bowel sounds, No distention. negative: Tenderness, Guarding, Rebound Back: positive: Nml inspection. negative: CVA tenderness (R), CVA tenderness (L ) Skin: positive: Color nml, No rash, Warm, Dry. negative: Cyanosis, Diaphoresis, Pallor Extremities: positive: Non-tender, Nml appearance. negative: Calf tenderness, Nash's sign/cords Neurologic/Psychiatric: positive: Oriented x3, Motor nml, Sensation nml, Mood/affect nml. negative: Weakness, Sensory loss, Facial droop, Slurred/abnml speech, Depressed mood/affect Conclusion/Plan - Problem List (1) GI bleed Conclusion/Plan: Patient reported she had large dark stool, and vomiting of blood. She also report she have some swallow problem in 2 weeks and a choke 2 days ago. Patient did not take any blood thinning, she never had EGD or colonoscopy done her life. She denies smoking or alcohol history. BUN is 42. GI surgeon plan to have up EGD and colonoscopy for pt. H&H check hemoglobin, Intravenous twice daily of Protonix, NPO after midnight, bowel prepare in the night, And intravenous IV fluids. (2) Hx of coronary artery disease Conclusion/Plan: Patient is hemodynamically stable now, she has no any home medication for her CAD. Patient report she is healthy. We will put telemetry and vital signs to monitor patient. - Lab Results Fish Bones: 05/17/20 10:24 05/17/20 10:24 Core Measures - Anticipated LOS I expect patient to be DC'd or transferred within 96 hours.: Yes - DVT/VTE - Prophylaxis VTE/DVT Device ordered at admit?: Yes VTE/DVT Prophylaxis med ordered at admit?: Yes
[2020-05-17] MEDS: SODIUM CHLORIDE 0.9% 1,000 ML IV SCH (14:56)
[2020-05-17 17:14] LABS: HGB - HEMOGLOBIN 9.8 g/dL (12.0-16.0)
[2020-05-17] MEDS: SODIUM/POTASSIUM/MAG SULFATES 354 ML PREP KIT PO SCH (18:17)
[2020-05-17] MEDS: SODIUM CHLORIDE FLUSH 0.9% 10 ML SYRINGE IVP SCH (18:19)
[2020-05-17] MEDS: PANTOPRAZOLE 40 MG VIAL IVP SCH (21:04)
[2020-05-17 23:45] LABS: HGB - HEMOGLOBIN 9.5 g/dL (12.0-16.0)
[2020-05-18] MEDS: SODIUM CHLORIDE 0.9% 1,000 ML IV SCH (02:21)
[2020-05-18] MEDS: SODIUM CHLORIDE FLUSH 0.9% 10 ML SYRINGE IVP SCH ×3 (02:49→16:07)
[2020-05-18 04:59] LABS: BASOPHILS % (AUTO) 0.6 %; EOSINOPHILS # (AUTO) 0.1 10^3/uL (0.0-0.7); EOSINOPHILS % (AUTO) 1.4 %; HGB - HEMOGLOBIN 8.1 g/dL (12.0-16.0); LYMPHOCYTES # (AUTO) 2.3 10^3/uL (1.5-3.5); LYMPHOCYTES % (AUTO) 34.7 %; MEAN CORPUSCULAR HEMOGLOBIN 29.8 pg (27.0-31.0); MEAN CORPUSCULAR HGB CONC 31.9 g/dL (32.0-36.0); MEAN CORPUSCULAR VOLUME 93.4 fL (81.0-99.0); MEAN PLATELET VOLUME 10.2 fL (7.9-10.8); MONOCYTES # (AUTO) 0.5 10^3/uL (0.0-1.0); MONOCYTES % (AUTO) 7.5 %; NEUTROPHILS # (AUTO) 3.6 10^3/uL (1.5-6.6); NEUTROPHILS % (AUTO) 55.5 %; PLT - PLATELET COUNT 187 10^3/uL (130-450); RED BLOOD COUNT 2.72 10^6/uL (4.20-5.40); RED CELL DISTRIBUTION WIDTH 13.2 % (12.0-15.0); WHITE BLOOD COUNT 6.5 x10^3/uL (4.8-10.8)
[2020-05-18 05:17] LABS: CALCIUM 8.3 mg/dL (8.5-10.3); CREATININE 0.8 mg/dL (0.4-1.0)
[2020-05-18] MEDS: SODIUM/POTASSIUM/MAG SULFATES 354 ML PREP KIT PO SCH (05:31)
--- NOTE | 2020-05-18 07:04 | PHARMACY PROGRESS NOTE ---
- Best Possible Medication History Admit Date and Time: 05/17/20 1406 Processed by: Pharmacy Medication History completed: Yes Patient Interview: Pt interview ONLY source As the person ultimately responsible for medication therapy, providers are able to order a medication from an existing home medication list in [facility] via the "Reconcile Routine" prior to Confirmation of that medication by support services manager. Such practice is discouraged except when the physician, in their clinical judgment, deems that a medical need exists for a medication without regard to previous use.
--- NOTE | 2020-05-18 07:30 | PROVIDER PROGRESS NOTE ---
Subjective - Prog Note Date Prog Note Date: 05/18/20 - Subjective Subjective: He has not noticed any significant bleeding since that she has been hospitalized. Reports no abdominal pain, nausea, vomiting. Current Medications - Current Medications Current Medications: Active Medications Acetaminophen (Tylenol) 650 mg PO Q4HR PRN PRN Reason: Pain 1 to 4 Sodium Chloride (Normal Saline 0.9%) 1,000 mls @ 83.3 mls/hr IV .Q12H1M [facility] Stop: 05/18/20 14:00 Last Admin: 05/18/20 02:21 Dose: 83.3 mls/hr Documented by: Ondansetron HCl (Zofran Inj) 4 mg IVP Q6HR PRN PRN Reason: Nausea / Vomiting Last Admin: 05/18/20 06:34 Dose: 4 mg Documented by: Pantoprazole Sodium (Protonix) 40 mg IVP BID [facility] Last Admin: 05/18/20 09:08 Dose: 40 mg Documented by: Prochlorperazine Edisylate (Compazine Inj) 10 mg IVP Q6HR PRN PRN Reason: Nausea / Vomiting Sodium Chloride (Normal Saline Flush 0.9%) 10 ml IVP PRN PRN PRN Reason: NEEDED PER PROVIDER ORDERS Last Admin: 05/17/20 21:04 Dose: 10 ml Documented by: Sodium Chloride (Normal Saline Flush 0.9%) 10 ml IVP 0100,0900,1700 [facility] Last Admin: 05/18/20 09:08 Dose: 10 ml Documented by: No Known Home Medications 05/17/20 Objective - Vital Signs/Intake & Output Reviewed Vital Signs: Yes Vital Signs: Vital Signs x48h Temp Pulse Resp BP Pulse Ox 05/18/20 06:43 36.6 C 73 20 131/54 H 99 05/18/20 02:46 36.8 C 73 18 130/45 L 97 05/17/20 23:39 36.6 C 69 20 125/59 L 97 Intake & Output: Intake & Output 05/15/20 05/16/20 05/17/20 05/18/20 23:59 23:59 23:59 23:59 Intake Total 2592.818 358.19 Balance 2592.818 358.19 - Objective General Appearance: positive: No acute distress, Alert, Mild distress Eyes Bilateral: positive: Conjunctivae nml ENT: positive: ENT inspection nml Neck: positive: Nml inspection Respiratory: positive: No respiratory distress. negative: Wheezes, Rales Cardiovascular: positive: Regular rate & rhythm, No murmur. negative: Tachycardia, Systolic murmur Abdomen: positive: Non-tender, No distention. negative: Tenderness, Guarding, R ebound Skin: positive: Warm, Dry Extremities: positive: Full ROM, No pedal edema Neurologic/Psychiatric: positive: Oriented x3, Motor nml. negative: Disoriented to person, Disoriented to place, Disoriented to time - Lab Results Fish Bones: 05/18/20 04:35 05/18/20 04:35 Other Labs: Lab Results x24hrs 05/18/20 05/18/20 05/17/20 Range/Units 04:35 04:35 23:30 WBC 6.5 (4.8-10.8) x10^3/uL RBC 2.72 L (4.20-5.40) 10^6/uL Hgb 8.1 L 9.5 L (12.0-16.0) g/dL Hct 25.4 L 29.3 L (37.0-47.0) % MCV 93.4 (81.0-99.0) fL MCH 29.8 (27.0-31.0) pg MCHC 31.9 L (32.0-36.0) g/dL RDW 13.2 (12.0-15.0) % Plt Count 187 (130-450) 10^3/uL MPV 10.2 (7.9-10.8) fL Neut # (Auto) 3.6 (1.5-6.6) 10^3/uL Lymph # (Auto) 2.3 (1.5-3.5) 10^3/uL [place] # (Auto) 0.5 (0.0-1.0) 10^3/uL Eos # (Auto) 0.1 (0.0-0.7) 10^3/uL Baso # (Auto) 0.0 (0.0-0.1) 10^3/uL Absolute Nucleated RBC 0.00 x10^3/uL Nucleated RBC % 0.0 /100WBC PT (9.9-12.6) secs INR (0.8-1.2) Sodium 142 (135-145) mmol/L Potassium 4.0 (3.5-5.0) mmol/L Chloride 110 (101-111) mmol/L Carbon Dioxide 25 (21-32) mmol/L Anion Gap 7.0 (6-13) BUN 29 H (6-20) mg/dL Creatinine 0.8 (0.4-1.0) mg/dL Estimated GFR (MDRD) 69 L (>89) Glucose 104 H (70-100) mg/dL Calcium 8.3 L (8.5-10.3) mg/dL Magnesium 2.0 (1.7-2.8) mg/dL Total Bilirubin (0.2-1.0) mg/dL AST (10-42) IU/L ALT (10-60) IU/L Alkaline Phosphatase (42-121) IU/L Total Protein (6.7-8.2) g/dL Albumin (3.2-5.5) g/dL Globulin (2.1-4.2) g/dL Albumin/Globulin Ratio (1.0-2.2) Lipase (22-51) U/L Blood Type Blood Type Recheck Antibody Screen 05/17/20 05/17/20 05/17/20 Range/Units 17:09 17:09 10:24 WBC (4.8-10.8) x10^3/uL RBC (4.20-5.40) 10^6/uL Hgb 9.8 L (12.0-16.0) g/dL Hct 30.6 L (37.0-47.0) % MCV (81.0-99.0) fL MCH (27.0-31.0) pg MCHC (32.0-36.0) g/dL RDW (12.0-15.0) % Plt Count (130-450) 10^3/uL MPV (7.9-10.8) fL Neut # (Auto) (1.5-6.6) 10^3/uL Lymph # (Auto) (1.5-3.5) 10^3/uL [place] # (Auto) (0.0-1.0) 10^3/uL Eos # (Auto) (0.0-0.7) 10^3/uL Baso # (Auto) (0.0-0.1) 10^3/uL Absolute Nucleated RBC x10^3/uL Nucleated RBC % /100WBC PT (9.9-12.6) secs INR (0.8-1.2) Sodium 139 (135-145) mmol/L Potassium 4.7 (3.5-5.0) mmol/L Chloride 104 (101-111) mmol/L Carbon Dioxide 27 (21-32) mmol/L Anion Gap 8.0 (6-13) BUN 42 H (6-20) mg/dL Creatinine 0.9 (0.4-1.0) mg/dL Estimated GFR (MDRD) 60 L (>89) Glucose 113 H (70-100) mg/dL Calcium 9.0 (8.5-10.3) mg/dL Magnesium (1.7-2.8) mg/dL Total Bilirubin 0.9 (0.2-1.0) mg/dL AST 11 (10-42) IU/L ALT 12 (10-60) IU/L Alkaline Phosphatase 44 (42-121) IU/L Total Protein 6.1 L (6.7-8.2) g/dL Albumin 3.5 (3.2-5.5) g/dL Globulin 2.6 (2.1-4.2) g/dL Albumin/Globulin Ratio 1.3 (1.0-2.2) Lipase 22 (22-51) U/L Blood Type Blood Type Recheck O POSITIVE Antibody Screen 05/17/20 05/17/20 05/17/20 Range/Units 10:24 10:24 10:24 WBC 6.3 (4.8-10.8) x10^3/uL RBC 3.45 L (4.20-5.40) 10^6/uL Hgb 10.3 L (12.0-16.0) g/dL Hct 32.7 L (37.0-47.0) % MCV 94.8 (81.0-99.0) fL MCH 29.9 (27.0-31.0) pg MCHC 31.5 L (32.0-36.0) g/dL RDW 12.7 (12.0-15.0) % Plt Count 207 (130-450) 10^3/uL MPV 10.0 (7.9-10.8) fL Neut # (Auto) 4.6 (1.5-6.6) 10^3/uL Lymph # (Auto) 1.1 L (1.5-3.5) 10^3/uL [place] # (Auto) 0.4 (0.0-1.0) 10^3/uL Eos # (Auto) 0.1 (0.0-0.7) 10^3/uL Baso # (Auto) 0.1 (0.0-0.1) 10^3/uL Absolute Nucleated RBC 0.00 x10^3/uL Nucleated RBC % 0.0 /100WBC PT 13.0 H (9.9-12.6) secs INR 1.2 (0.8-1.2) Sodium (135-145) mmol/L Potassium (3.5-5.0) mmol/L Chloride (101-111) mmol/L Carbon Dioxide (21-32) mmol/L Anion Gap (6-13) BUN (6-20) mg/dL Creatinine (0.4-1.0) mg/dL Estimated GFR (MDRD) (>89) Glucose (70-100) mg/dL Calcium (8.5-10.3) mg/dL Magnesium (1.7-2.8) mg/dL Total Bilirubin (0.2-1.0) mg/dL AST (10-42) IU/L ALT (10-60) IU/L Alkaline Phosphatase (42-121) IU/L Total Protein (6.7-8.2) g/dL Albumin (3.2-5.5) g/dL Globulin (2.1-4.2) g/dL Albumin/Globulin Ratio (1.0-2.2) Lipase (22-51) U/L Blood Type O POSITIVE Blood Type Recheck Antibody Screen NEGATIVE ABX Reporting Has patient been on IV antibiotics over the past 48 hours?: No Assessment/Plan - Problem List (1) Upper GI bleeding Impression: She has reported hematemesis and dark tarry stools at home. Her stool is occult positive. She is also anemic. Etiology is not clear she denies any NSAID use and reports minimal alcohol consumption. We will continue her on Protonix 40 mg IV twice daily. We will keep her n.p.o. for EGD and colonoscopy today. We will start her on clear liquid diet after the scopes. We will continue to trend her hemoglobin monitor for evidence of bleeding. (2) Acute blood loss anemia Impression: Her hemoglobin has trended down to 8.1 from 10.3 on admission. She not had evidence of significant bleeding during this hospitalization has remained hemodynamically stable. We will transfuse for whole goal hemoglobin greater than 8 given her history of coronary artery disease. We will continue to trend her hemoglobin every 8 hours. SCDs for DVT prophylaxis. (3) Hx of coronary artery disease Impression: She reports a history of coronary artery disease and CABG back in 2006. She had been on aspirin but this was discontinued a few years ago. She currently takes no medications. We will transfuse for goal hemoglobin greater than 8 given her history of coronary artery disease. She currently reports no chest pain.
--- NOTE | 2020-05-18 08:32 | ADVANCE CARE PLANNING NOTE ---
Advance Care Planning - Planning Encounter Date: 05/18/20 Time: 08:05 Purpose: Clarify goals of care. Parties in Attendance: The patient and the SASH FINISHERGeorge. Decisional Capacity of the Patient: She has ability to make her own medical decisions. - Diagnosis for Encounter (1) Upper GI bleeding Summary: She is admitted after having hematemesis and dark tarry stools at home. She is found to be anemic. She is admitted for endoscopy and colonoscopy as well as transfusion as needed. - Encounter Subjective/Patient's Story: Patient reports living at home with her who suffers from Parkinson's disease. She has been his primary caregiver and he has required a lot of assistance lately. She reports being physically independent and quite active. She is a history of coronary artery disease in the past and had a CABG in 2006. She currently takes no medications after discussion with her primary care provider. She gets no chest pain or dyspnea with activity. Objective/Medical Story: He was admitted after having dark tarry stools at home and an episode of hematemesis. She was found to be anemic in the emergency department but hemodynamically stable. She was admitted yesterday to the floor for fluid resuscitation and Protonix IV. General surgery has been consulted and will be seeing her for endoscopy and colonoscopy. Her hemoglobin has slightly trended down but she has not met the threshold for transfusion. She has not had further evidence of bleeding during this hospitalization. Goals of Care: The patient had initially told the admitting provider that she was a full code. She brought attention to the SASH FINISHER this morning that she wants to discuss goals of care and I spoke with the patient. We discussed what entails of being a full code including CPR. She thought that after CPR the patient would be awake and doing fine. I informed her that patients are almost always admitted to the intensive care unit and required to be a mechanical ventilation to assess her neurologic function. She stated that is not what she would want. She would not want mechanical ventilation or CPR and she would like to be a DNR. Plan: After we discussed goals of care and what entails of CPR, she decided to be a DNR. I have changed this in our EMR to reflect this. We discussed filling out a POLST form and I informed her this could be done during this hospitalization or she can follow-up with her primary care provider Dr. Mayer to complete this. We will discuss this once again after her endoscopy and colonoscopy to see if she like to complete this before she is discharged. We went over what entails of a POLST form. Code Status: Do Not Attempt Resuscitation Time spent on advance care plannin
[2020-05-18] MEDS: PANTOPRAZOLE 40 MG VIAL IVP SCH ×2 (09:08→20:02)
--- NOTE | 2020-05-18 12:07 | CONSULTATION NOTE ---
Referring Provider Name of Referring Provider:: Wetzel & Dr. Ivan Gao Consult Date: 05/18/20 Chief Complaint - Chief Complaint Chief Complaint: Gastrointestinal bleed History of Present Illness - Admitted From Admitted From:: Home through ER - History Obtained From Records Reviewed: Electronic medical record History obtained from: Patient Exam Limitations: None - History of Present Illness HPI Comment/Other: 80-year-old female with history of coronary artery disease status post triple bypass currently on no anticoagulation who presents following near syncopal episode with associated melanotic stool and hematemesis. She reports having awakened to use the toilet with necessary straining and dark tarry stool and after having suffered lightheadedness she proceeded to her bedroom and after laying down she proceeded to have nausea and vomiting with dark hematemesis as a consequence. She takes no antiplatelet agents having been discontinued from them in years past. She has never undergone upper and lower endoscopy. She denies any recent NSAID use and denies any prior history of ulcer disease. She was admitted to the hospital service for presumptive gastrointestinal bleed and surgical consultation was called as a consequence History - Past Medical History Cardiovascular: reports: Coronary artery disease, Murmur Respiratory: reports: None Neuro: reports: None Endocrine/Autoimmune: reports: None GI: reports: None : reports: None HEENT: reports: Chronic vision loss Psych: reports: Anxiety Musculoskeletal: reports: None Derm: reports: None MRSA Hx?: No - Past Surgical History General: reports: Appendectomy Cardiovascular: reports: CABG - Family & Social History Family History: Mother: , Father: Family History Comment/Other: Patient reported her father from some stomach issue she did not know detail. Her mother from breast cancer, her brother have diabetic. Living arrangement: At home Living Situation: With spouse/s.o. Social History Notes: Patient denies history of alcohol, smoking and drug issue. She is living at [place], she had 2 children. - POLST Patient has POLST: Yes Meds/Allgy - Home Medications Home Medications: Ambulatory Orders Medication Instructions Recorded Confirmed No Known Home Medications 05/17/20 05/18/20 - Allergies Allergies/Adverse Reactions: Allergies Allergy/AdvReac Type Severity Reaction Status Date / Time No Known Drug Allergies Allergy Verified 03/20/19 13:54 Review of Systems - Constitutional Constitutional: reports: Fatigue, Weakness - Gastrointestinal Gastrointestinal: reports: Rectal bleeding, Black stools, Bloody stools, Nausea, Vomiting, Maikel blood emesis. denies: Abdominal pain, Abdominal distention, Change in bowel habits Exam - Vital Signs Reviewed Vital Signs: Yes Vital Signs: Vital Signs x48h Temp Pulse Pulse Resp BP Pulse Ox 05/18/20 10:57 36.6 C 72 16 97 05/18/20 07:47 36.6 C 72 16 120/47 L 97 05/18/20 06:43 36.6 C 73 20 131/54 H 99 - Physical Exam General Appearance: positive: No acute distress, Alert, Mild distress Eyes Bilateral: positive: Normal inspection, PERRL, EOMI ENT: positive: ENT inspection nml Neck: positive: Nml inspection Respiratory: positive: Chest non-tender, No respiratory distress, Breath sounds nml. negative: Wheezes, Rales, Rhonchi Cardiovascular: positive: Regular rate & rhythm Abdomen: positive: Non-tender. negative: Tenderness, Guarding, Rebound Rectal: positive: Other (Deferred) Skin: positive: Color nml Extremities: positive: Non-tender, Full ROM, Nml appearance Neurologic/Psychiatric: positive: Oriented x3, CN's nml (2-12), Motor nml, Sensation nml, Mood/affect nml Conclusion and Plan - Lab Results Microbiology Results 05/17/20 11:10 Stool Occult Blood - Final Laboratory Results 05/18/20 04:35: Sodium 142, Potassium 4.0, Chloride 110, Carbon Dioxide 25, Anion Gap 7.0, BUN 29 H, Creatinine 0.8, Estimated GFR (MDRD) 69 L, Glucose 104 H, Calcium 8.3 L, Magnesium 2.0 05/18/20 04:35: WBC 6.5, RBC 2.72 L, Hgb 8.1 L, Hct 25.4 L, MCV 93.4, MCH 29.8, MCHC 31.9 L, RDW 13.2, Plt Count 187, MPV 10.2, Neut # (Auto) 3.6, Lymph # (Auto) 2.3, [place] # (Auto) 0.5, Eos # (Auto) 0.1, Baso # (Auto) 0.0, Absolute Nucleated RBC 0.00, Nucleated RBC % 0.0 05/17/20 23:30: Hgb 9.5 L, Hct 29.3 L 05/17/20 17:09: Hgb 9.8 L, Hct 30.6 L 05/17/20 17:09: Blood Type Recheck O POSITIVE 05/17/20 10:24: Sodium 139, Potassium 4.7, Chloride 104, Carbon Dioxide 27, Anion Gap 8.0, BUN 42 H, Creatinine 0.9, Estimated GFR (MDRD) 60 L, Glucose 113 H, Calcium 9.0, Total Bilirubin 0.9, AST 11, ALT 12, Alkaline Phosphatase 44, Total Protein 6.1 L, Albumin 3.5, Globulin 2.6, Albumin/Globulin Ratio 1.3, Lipase 22 05/17/20 10:24: PT 13.0 H, INR 1.2 05/17/20 10:24: WBC 6.3, RBC 3.45 L, Hgb 10.3 L, Hct 32.7 L, MCV 94.8, MCH 29.9, MCHC 31.5 L, RDW 12.7, Plt Count 207, MPV 10.0, Neut # (Auto) 4.6, Lymph # (Auto) 1.[address] L, [place] # (Auto) 0.4, Eos # (Auto) 0.1, Baso # (Auto) 0.1, Absolute Nucleated RBC 0.00, Nucleated RBC % 0.0 05/17/20 10:24: Blood Type O POSITIVE, Antibody Screen NEGATIVE - Diagnosis Diagnosis: 1. Presumptive upper gastrointestinal bleed with hematemesis. 2. Uremia likely secondary to upper GI bleed. 3. Acute on chronic blood loss anemia. 4. History of coronary artery disease - Plan Plan: 1. Admit to hospitalist service 2. Serial H&H, performed type and screen in case of necessary transfusion 3. Proceed with bowel prep as the patient is stable from a hemodynamic standpoint and is never undergone lower endoscopy 4. Plan upper endoscopy to evaluate source, as well as colonoscopy, risks and benefits discussed 5. Aggressive resuscitation 6. Bowel rest 8. PPI infusion and consider Carafate pending results
--- NOTE | 2020-05-18 12:44 | ANESTHESIA ---
Pre-Anesthesia VS, & Labs - Diagnosis Diagnosis 1. Presumptive upper gastrointestinal bleed with hematemesis 2. Uremia likely secondary to upper GI bleed 3. Acute on chronic blood loss anemia 4. History of coronary artery disease - Procedure EGD/Cscope Vital Signs: Temp Pulse Resp BP Pulse Ox 36.7 C 78 16 109/51 L 98 05/18/20 12:00 05/18/20 12:00 05/18/20 12:00 05/18/20 12:00 05/18/20 12:00 Height: 5 ft 2 in Weight (kg): 70.76 kg Body Mass Index: 28.5 BMI Classification: Overweight - NPO >8 hours - Is Patient ?: No - Lab Results Current Lab Results: Laboratory Tests 05/18/20 04:35: Sodium 142, Potassium 4.0, Chloride 110, Carbon Dioxide 25, Anion Gap 7.0, BUN 29 H, Creatinine 0.8, Estimated GFR (MDRD) 69 L, Glucose 104 H, Calcium 8.3 L, Magnesium 2.0 05/18/20 04:35: WBC 6.5, RBC 2.72 L, Hgb 8.1 L, Hct 25.4 L, MCV 93.4, MCH 29.8, MCHC 31.9 L, RDW 13.2, Plt Count 187, MPV 10.2, Neut # (Auto) 3.6, Lymph # (Auto) 2.3, [place] # (Auto) 0.5, Eos # (Auto) 0.1, Baso # (Auto) 0.0, Absolute Nucleated RBC 0.00, Nucleated RBC % 0.0 05/17/20 23:30: Hgb 9.5 L, Hct 29.3 L 05/17/20 17:09: Hgb 9.8 L, Hct 30.6 L 05/17/20 17:09: Blood Type Recheck O POSITIVE 05/17/20 10:24: Sodium 139, Potassium 4.7, Chloride 104, Carbon Dioxide 27, Anion Gap 8.0, BUN 42 H, Creatinine 0.9, Estimated GFR (MDRD) 60 L, Glucose 113 H, Calcium 9.0, Total Bilirubin 0.9, AST 11, ALT 12, Alkaline Phosphatase 44, Total Protein 6.1 L, Albumin 3.5, Globulin 2.6, Albumin/Globulin Ratio 1.3, Lipase 22 05/17/20 10:24: PT 13.0 H, INR 1.2 05/17/20 10:24: WBC 6.3, RBC 3.45 L, Hgb 10.3 L, Hct 32.7 L, MCV 94.8, MCH 29.9, MCHC 31.5 L, RDW 12.7, Plt Count 207, MPV 10.0, Neut # (Auto) 4.6, Lymph # (Auto) 1.1 L, [place] # (Auto) 0.4, Eos # (Auto) 0.1, Baso # (Auto) 0.1, Absolute Nucleated RBC 0.00, Nucleated RBC % 0.0 05/17/20 10:24: Blood Type O POSITIVE, Antibody Screen NEGATIVE Lab results reviewed: Yes Fish Bones: 05/18/20 04:35 05/18/20 04:35 Home Medications and Allergies Home Medications: Ambulatory Orders No Known Home Medications 05/17/20 Active Medications Acetaminophen (Tylenol) 650 mg PO Q4HR PRN PRN Reason: Pain 1 to 4 Sodium Chloride (Normal Saline 0.9%) 1,000 mls @ 83.3 mls/hr IV .Q12H1M [facility] Stop: 05/18/20 14:00 Last Admin: 05/18/20 02:21 Dose: 83.3 mls/hr Documented by: Ondansetron HCl (Zofran Inj) 4 mg IVP Q6HR PRN PRN Reason: Nausea / Vomiting Last Admin: 05/18/20 06:34 Dose: 4 mg Documented by: Pantoprazole Sodium (Protonix) 40 mg IVP BID [facility] Last Admin: 05/18/20 09:08 Dose: 40 mg Documented by: Prochlorperazine Edisylate (Compazine Inj) 10 mg IVP Q6HR PRN PRN Reason: Nausea / Vomiting Sodium Chloride (Normal Saline Flush 0.9%) 10 ml IVP PRN PRN PRN Reason: NEEDED PER PROVIDER ORDERS Last Admin: 05/17/20 21:04 Dose: 10 ml Documented by: Sodium Chloride (Normal Saline Flush 0.9%) 10 ml IVP 0100,0900,1700 [facility] Last Admin: 05/18/20 09:08 Dose: 10 ml Documented by: No Known Home Medications 05/17/20 Allergies/Adverse Reactions: Allergies Allergy/AdvReac Type Severity Reaction Status Date / Time No Known Drug Allergies Allergy Verified 03/20/19 13:54 Anes History & Medical History - Anesthetic History Anesthesia Complications: reports: No previous complications Family history of Anesthesia Complications: Denies Family history of Malignant Hyperthermia: Denies - Medical History Cardiovascular: reports: Coronary artery disease, Murmur Pulmonary: reports: None Gastrointestinal: reports: None Urinary: reports: None Neuro: reports: None Musculoskeletal: reports: None Endocrine/Autoimmune: reports: None Blood Disorders: reports: None Skin: reports: None Smoking Status: Never smoker - Surgical History General: Appendectomy Cardiothoracic: CABG Exam General: Alert, Oriented x3, Cooperative Dental: Dentures full Upper (implants) Mouth Openin Fingerbreadth Neck Mobility: Normal Mallampati classification: II Thyromental Distance: 4-6 cm Respiratory: Lungs clear, Normal breath sounds, No respiratory distress Cardiovascular: Regular rate Neurological: Normal speech Mental/Cognitive Status: Alert/Oriented X3, Normal for patient Cognitive Status: Within normal limits Plan Anesthesia Type: MAC Consent for Procedure(s) Verified and Reviewed: Yes Code Status: Attempt Resuscitation ASA classification: 3-Severe systemic disease Is this case an emergency?: Yes
[2020-05-18] MEDS ORDERED: LIDO GARGLE 30 ML BOTTLE ONE (12:49)
--- NOTE | 2020-05-18 14:22 | ANESTHESIA POST OP EVALUATION ---
Anesthesia Post Eval - Post Anesthesia Eval Vitals: Last Vital Signs Temp 36.7 C 05/18/20 12:00 Pulse 78 05/18/20 14:15 Resp 22 05/18/20 14:15 BP 122/51 L 05/18/20 14:15 Pulse Ox 96 05/18/20 14:15 CV Function Including HR & BP: positive: Stable Pain Control: positive: Satisfactory Nausea & Vomiting: positive: Negative Mental Status: positive: Baseline (drowsy) Respiratory Status: Airway Patent Hydration Status: Satisfactory Anesthesia Complications: positive: None
--- NOTE | 2020-05-18 15:26 | PROVIDER PROGRESS NOTE ---
Progress Note 80-year-old female status post esophagogastroduodenoscopy and colonoscopy as part of work-up for gastrointestinal bleed. Have already discussed preliminary results with hospitalist service. In brief she presented with melanotic stool as well as hematemesis. Upper endoscopy revealed the followin. Normal duodenum no duodenal ulcers appreciated and no bright red blood or clots noted 2. Gastric antral ulcer, cavitating, approximately half centimeter for which clip was placed and biopsies taken 3. Hiatal hernia small. Random gastric biopsies taken. 4. 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 5. Clot noted but no active bleeding seen at the antral ulcer. Clip placed/Endo Clip with no complication. Colonoscopy was unremarkable to the ileocecal valve with no significant clot or melanotic stool appreciated. No diverticulosis. Patient with diminished rectal tone. Would recommend the followin. Bowel rest for another 24 hours with IV fluids and Protonix/PPI drip 2. Carafate 4 times daily 3. Continue to trend H&H and transfuse as necessary 4. Await biopsy pathology 5. Patient will need repeat scope especially upper to evaluate resolution of ulcer 6. If no further drop in H&H and no concern for repeat hemorrhage may consider advancing diet tomorrow. Final endoscopy reports pending. Please note that voice recognition software was used to transcribe this note and inadvertent errors might persist in spite of review and editing. I am obliged to you for your attention. I am thankful to you for allowing me to participate with you in this care of this patient.
[2020-05-18] MEDS: SUCRALFATE 1 GM/10 ML UDC PO SCH ×2 (16:07→21:22)
[2020-05-18] MEDS ORDERED: PROPOFOL 200 MG/20 ML VIAL IVP ONE (17:04)
[2020-05-18] MEDS ORDERED: KETAMINE 500 MG/10 ML VIAL IVP ONE (17:04)
[2020-05-18] MEDS ORDERED: MIDAZOLAM 2 MG/2 ML VIAL IVP ONE (17:04)
[2020-05-18 22:21] LABS: HGB - HEMOGLOBIN 8.3 g/dL (12.0-16.0)
[2020-05-19] MEDS ORDERED: BENZOCAINE/MENTHOL LOZENGE MM PRN (00:21)
[2020-05-19] MEDS: SODIUM CHLORIDE FLUSH 0.9% 10 ML SYRINGE IVP SCH ×2 (00:30→09:52)
[2020-05-19 05:12] LABS: BASOPHILS # (AUTO) 0.1 10^3/uL (0.0-0.1); BASOPHILS % (AUTO) 0.7 %; EOSINOPHILS # (AUTO) 0.2 10^3/uL (0.0-0.7); EOSINOPHILS % (AUTO) 2.2 %; LYMPHOCYTES # (AUTO) 1.7 10^3/uL (1.5-3.5); LYMPHOCYTES % (AUTO) 25.4 %; MEAN CORPUSCULAR HEMOGLOBIN 30.9 pg (27.0-31.0); MEAN CORPUSCULAR HGB CONC 33.3 g/dL (32.0-36.0); MEAN CORPUSCULAR VOLUME 92.7 fL (81.0-99.0); MEAN PLATELET VOLUME 10.2 fL (7.9-10.8); MONOCYTES # (AUTO) 0.4 10^3/uL (0.0-1.0); MONOCYTES % (AUTO) 5.7 %; NEUTROPHILS # (AUTO) 4.5 10^3/uL (1.5-6.6); NEUTROPHILS % (AUTO) 65.7 %; PLT - PLATELET COUNT 173 10^3/uL (130-450); RED BLOOD COUNT 2.59 10^6/uL (4.20-5.40); RED CELL DISTRIBUTION WIDTH 13.2 % (12.0-15.0); WHITE BLOOD COUNT 6.9 x10^3/uL (4.8-10.8)
[2020-05-19 05:22] LABS: CALCIUM 8.3 mg/dL (8.5-10.3); CREATININE 0.7 mg/dL (0.4-1.0)
[2020-05-19] MEDS: SUCRALFATE 1 GM/10 ML UDC PO SCH ×2 (09:51→13:22)
[2020-05-19] MEDS: PANTOPRAZOLE 40 MG VIAL IVP SCH (09:51)
[2020-05-19 10:38] VITALS: BP 139/47
--- NOTE | 2020-05-19 13:56 | Discharge Plan ---
Discharge Plan Problem Reviewed?: Yes Disposition: Home, Self Care Condition: Stable Prescriptions: Sucralfate [Carafate] 1 gm PO 0700,1100,1600,2200 #120 udc Omeprazole 40 mg PO BID #60 capsule. Diet: Regular Activity Restrictions: Activity as Tolerated Shower Restrictions: No (fall precaution) Instruction Topics: Omeprazole tablets OTC, Sucralfate tablets, Gastric Ulcer Health Concerns: gastric ulcer Plan of Treatment: you were found to have gastric ulcer, you are prescribed PPI omeprazole and Carafate to help your gastric ulcer healing. advise you followup with GI surgeon in 4-6 weeks to recheck your gastric ulcer healing conditions. Care Goals: stabilization and improvement/resolve of your medical conditions. Assessment: discussed the care plan with you, you understood and agreed. Additional Instructions or Follow Up instructions: you may followup with your PCP in one to two weeks, followup with GI surgeon in 4-6 weeks to monitor your ulcer healing situation. Should your symptoms return or worsen, you may present ER or call 911 for help. No Smoking: If you smoke, Please STOP! Call for help. Follow-up with: Anthony Mayer MD [Primary Care Provider] -
--- NOTE | 2020-05-19 14:05 | DISCHARGE SUMMARY ---
Discharge Summary Admit Date: 05/17/20 Discharge Date: 05/19/20 Discharging Provider: Alejandro Calderón Primary Care Provider: Dr. Anthony Mayer Condition at Discharge: Stable Discharge Disposition: 01 Home, Self Care Discharge Facility Name: home - DIAGNOSES Discharge Diagnoses with Status of Each Condition: (1) Upper GI bleeding Patient's hemoglobin is stable, no more hematemesis. BUN is normal. pt has no bowel movement. pt tolerate diet. pt is prescribed PPI, and carafate, advise followup with surgeon in 4-6 week to recheck gastric ulcer healing. pt had EGD and Colonoscopy. EGD found Gastric antral ulcer, cavitating, approximately half centimeter for which clip was placed and biopsies taken. Colonoscopy was unremarkable. Patient was informed of all her test results, answered all her questions. (2) Acute blood loss anemia no more acute bleeding. Hemoglobin is stable. (3) Hx of coronary artery disease stable. - HPI History of Present Illness: This is a memo 80 years old female with a past medical history significant of CAD with bypass in 2006, Heart murmur Who complain to have dark stool and hematemesis. Patient reported in today 9 AM she take a quite a long time to have bowel movement, she found that she have very dark large stool. she feel dizziness but no loss conscious or fall, and laying at the bed and sweating. The n she had vomiting of blood, size is like a cup. Patient reported after she had vomiting she feel much better. Patient also reported she have some difficulty swallow for 2 weeks and a choke 2 days ago. She reported she has no home medications "I am healthy." She denies history of smoking or alcohol issue. She denies taking any blood thinners or even baby aspirin. She reported she never have EGD or colonoscopy done in her life. Patient denies chest pain, fever, chilly, shortness of breathing. In routine laboratory test show patient had a hemoglobin 10.3, she had 12.9 in 2018, And elevated BUN 42. Chest x-ray is unremarkable. Patient is afebrile, no tachycardia, hemodynamic stable at this point. Surgeon was called, surgeon planned to have EGD and colonoscopy for patient on tomorrow. Discussed care goal with patient, patient like to choose full code. - CONSULTS | PROCEDURES Consultations: Dr. Durant Procedures: EGD and colonoscopy - HOSPITAL COURSE Hospital Course: Patient was admitted for GI bleeding, patient was found to have hematemesis and dark stool. Patient had EGD and colonoscopy done in the hospital by GI surgeon. EGD found Gastric antral ulcer, cavitating, approximately half centimeter for which clip was placed and biopsies taken. Colonoscopy was unremarkable. Patient was give intravenous Protonix, and carafate. Patient has no more GI bleeding, Hemoglobin is stable, patient tolerated diet. Patient was prescribed PPI, Carafate, advised patient follow-up with surgeon in 4-6weeks to recheck for gastro ulcer healing. - ALLERGIES Allergies/Adverse Reactions: Allergies Allergy/AdvReac Type Severity Reaction Status Date / Time No Known Drug Allergies Allergy Verified 03/20/19 13:54 - MEDICATIONS Home Medications: Ambulatory Orders Medication Instructions Recorded Confirmed Omeprazole 40 mg PO BID #60 capsule. 05/19/20 Sucralfate [Carafate] 1 gm PO 0700,1100,1600,2200 #120 05/19/20 udc - PHYSICAL EXAM AT DISCHARGE General Appearance: positive: No acute distress, Alert. negative: Lethargic Eyes Bilateral: positive: Normal inspection, PERRL, No lid inflammation ENT: positive: ENT inspection nml, Pharynx nml, No signs of dehydration. negative: Purulent nasal drainage Neck: positive: Nml inspection, Thyroid nml, Trachea midline. negative: Thyromegaly, Stiff neck, Tracheal deviation Respiratory: positive: Chest non-tender, No respiratory distress, Breath sounds nml. negative: Wheezes, Rales, Rhonchi Cardiovascular: positive: Regular rate & rhythm, No murmur. negative: Tachycardia, Bradycardia, Systolic murmur, Diastolic murmur Peripheral Pulses: positive: 2+ Abdomen: positive: Non-tender, Nml bowel sounds, No distention. negative: Tenderness, Guarding, Rebound Back: positive: Nml inspection. negative: CVA tenderness (R), CVA tenderness (L) Skin: positive: Color nml, No rash, Warm, Dry. negative: Cyanosis, Diaphoresis, Pallor Extremities: positive: Non-tender, Full ROM, Nml appearance. negative: Calf tenderness Neurologic/Psychiatric: positive: Oriented x3, Motor nml, Sensation nml, Mood/affect nml. negative: Weakness, Sensory loss, Facial droop, Slurred/abnml speech, Depressed mood/affect - LABS Result Diagrams: 10/06/20 11:24 05/19/20 04:35 - FOLLOW UP Follow Up: you were found to have gastric ulcer, you are prescribed PPI omeprazole and Carafate to help your gastric ulcer healing. advise you followup with GI surgeon in 4-6 weeks to recheck your gastric ulcer healing conditions. you may followup with your PCP in one to two weeks, followup with GI surgeon in 4-6 weeks to monitor your ulcer healing situation. Should your symptoms return or worsen, you may present ER or call 911 for help. - TIME SPENT Time Spent in Discharge (Minutes): 30
== END 2020-05-19 14:49 | disposition home or self-care (01) | DRG 378 ==
LOC: EDUNIT# → ED 10:01 → MS3 14:06 → OBSVTOIN 05-18 09:59
PROVIDERS: ADMIT Nurse Practitioner Gerontology; ATTEND Nurse Practitioner Gerontology
PROC: 0DB58ZX Excision of Esophagus, Via Natural or Artificial Opening Endoscopic, Diagnostic (ICD-10-PCS; 2020-05-18)
PROC: 0DB98ZX Excision of Duodenum, Via Natural or Artificial Opening Endoscopic, Diagnostic (ICD-10-PCS; 2020-05-18)
PROC: 0DJD8ZZ Inspection of Lower Intestinal Tract, Via Natural or Artificial Opening Endoscopic (ICD-10-PCS; 2020-05-18)
PROC: 0W3P8ZZ Control Bleeding in Gastrointestinal Tract, Via Natural or Artificial Opening Endoscopic (ICD-10-PCS; principal; 2020-05-18 12:00)
PROC: 0DB68ZX Excision of Stomach, Via Natural or Artificial Opening Endoscopic, Diagnostic (ICD-10-PCS; 2020-05-18 12:00)
DX: K92.1 Melena (principal); K92.0 Hematemesis; R13.10 Dysphagia, unspecified; K25.4 Chronic or unspecified gastric ulcer with hemorrhage; D62 Acute posthemorrhagic anemia; K44.9 Diaphragmatic hernia without obstruction or gangrene; Z95.1 Presence of aortocoronary bypass graft; Z66 Do not resuscitate; I25.10 Atherosclerotic heart disease of native coronary artery without angina pectoris; R01.1 Cardiac murmur, unspecified; H54.7 Unspecified visual loss
CPT/HCPCS: 36415; 71045; 80048; 80053; 82272; 83690; 83735; 85014; 85018; 85025; 85610; 86850; 86900; 86901; 96374; 96375; 96376; 99285; A9270; G0378; 82270